=== PATIENT | female | born 1955 | race Caucasian/White ===

== ENCOUNTER → 2017-02-28 | Outpatient (CLI) | payer BC ==
[2017-02-28 15:09] LABS: BASOPHILS % 0.8 % (0.0-2.0); HEMATOCRIT. 40.1 % (36.0-48.0); HEMOGLOBIN. 13.6 g/dL (12.0-16.0); LYMPHOCYTES % 32.2 % (20.0-50.0); MEAN CORPUSCULAR HEMOGLOBIN 31.5 pg (28.0-32.0); MEAN CORPUSCULAR VOLUME 92.9 fL (81.0-99.0); MEAN PLATELET VOLUME 9.3 fl (7.4-10.4); MONOCYTES % 6.1 % (2.0-8.0); NEUTROPHILS % 59.9 % (40.0-76.0); PLATELET 200 x1000/uL (130-400); RED BLOOD CELL COUNT 4.32 mill/uL (4.2-5.4); RED CELL DISTRIBUTION WIDTH 13.5 % (11.6-14.6)
[2017-03-02 15:07] LABS: *ANA DIRECT W REFLEX PANEL Negative (Negative); QFT MITOGEN VALUE 6.68 IU/mL (.); QFT TB AG MINUS NIL VALUE 0.09 IU/mL (.); QFT TB GOLD Negative (Negative)
[2017-03-04 13:12] LABS: ANGIOTENSION CONVERTING ENZYME 32 U/L (14-82); ANTI-MYELOPEROXIDASE AB < 9.0 U/mL (0.0-9.0); ANTI-PROTEINASE 3 ABS < 3.5 U/mL (0.0-3.5)
[2017-03-05 13:12] LABS: B HENSELAE IGG Negative titer (Neg:<1:320); B HENSELAE IGM Negative titer (Neg:<1:100); B QUINTANA IGG Negative titer (Neg:<1:320); B QUINTANA IGM Negative titer (Neg:<1:100)
[2017-03-05 14:23] LABS: ATYPICAL P-ANCA <1:20 titer (Neg:<1:20); CYTOPLASMIC C-ANCA <1:20 titer (Neg:<1:20); PERINUCLEAR P-ANCA <1:20 titer (Neg:<1:20)
[2017-03-06 07:19] LABS: HLA B27 DISEASE ASSOCIATION Negative (.)
== END | disposition home or self-care (01) ==
LOC: LAB 13:27
DX: H20.9 Unspecified iridocyclitis (principal)
CPT/HCPCS: 36415; 82164; 83520; 85025; 85651; 86038; 86256; 86430; 86480; 86611; 86780; 86790; 87186

== ENCOUNTER 2019-03-02 18:50 | Emergency (ER) | payer BC ==
[~2019-03-02] VITALS: Ht 162.6 cm; Wt 60.0 kg
[2019-03-02 18:57] VITALS: BP 159/83
== END 2019-03-02 19:57 | disposition left against medical advice (07) ==
LOC: ER 18:50
DX: Z53.21 Procedure and treatment not carried out due to patient leaving prior to being seen by health care provider (principal)